=== PATIENT | male | born 1955 | race Caucasian/White ===

== ENCOUNTER 2017-07-20 19:48 | Emergency (ER) | payer SELFPAY ==
[2017-07-20 19:54] VITALS: BP 121/80; PULSE 110; RESP 16; TEMP 97.7; O2SAT 94
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
== END 2017-07-20 20:28 | disposition left against medical advice (07) ==
DX: Z53.21 Procedure and treatment not carried out due to patient leaving prior to being seen by health care provider (principal)

== ENCOUNTER 2018-09-27 19:16 | Emergency (ER) | payer SELFPAY ==
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
[2018-09-27] MEDS ORDERED: CHLORDIAZEPOXIDE 25MG PREPK#6 BTL TAKEHOME ONE (19:26)
[2018-09-27 19:29] VITALS: BP 159/102
== END 2018-09-27 19:55 | disposition home or self-care (01) ==
LOC: EDUNIT#
DX: F10.920 Alcohol use, unspecified with intoxication, uncomplicated (principal); S00.81XA Abrasion of other part of head, initial encounter; W19.XXXA Unspecified fall, initial encounter

== ENCOUNTER 2018-12-04 15:23 | Inpatient (IN) | payer SELFPAY, OTHER | END 2018-12-05 12:44 | disposition E | LOC: F2N 17:23 ==